=== PATIENT | male | born 1970 | race Caucasian/White ===

== ENCOUNTER 2017-06-08 17:45 | Emergency (ER) | payer OTHER ==
[~2017-06-08] VITALS: Ht 185.4 cm; Wt 106.6 kg
[2017-06-08 17:45] VITALS: BP 113/68
[2017-06-08] MEDS ORDERED: KETOROLAC TROMETHAMINE INJ 60 MG/2 ML VIAL IM ONE ×2 (19:00→19:02)
== END 2017-06-08 19:20 | disposition home or self-care (01) ==
LOC: ER 17:46
DX: M54.5 Low back pain (principal); F17.200 Nicotine dependence, unspecified, uncomplicated
CPT/HCPCS: 96372; 99283; A4606; J1885; J7030; Z7610

== ENCOUNTER 2017-06-30 00:58 | Inpatient (IN) | payer OTHER ==
[~2017-06-30] VITALS: Ht 185.4 cm; Wt 100.2 kg
--- NOTE | 2017-06-30 01:07 | NUR ---
LUQ ABD PAIN X 4 DAYS, DIARRHEA X 3 PAST 4 DAYS, NO N/V PAIN ALLEVIATES WHEN URINATING
[2017-06-30] MEDS ORDERED: MORPHINE SULFATE INJ 4 MG/ML DISP.SYRIN ONE ×2 (01:30→06:41)
[2017-06-30] MEDS ORDERED: ONDANSETRON HCL/PF 4 MG/2 ML VIAL ONE (01:30)
[2017-06-30] MEDS ORDERED: MORPHINE SULFATE INJ 2 MG/ML DISP.SYRIN IV ONE (01:30)
[2017-06-30] MEDS ORDERED: ONDANSETRON HCL/PF 4 MG/2 ML VIAL IVP ONE (01:30)
[2017-06-30] MEDS ORDERED: IV NS 0.9% 1,000 ML BAG IV ONE (01:30)
[2017-06-30 01:35] LABS: BASOPHILS # (AUTO) 0.4 /CMM (0.0-0.2); BASOPHILS % (AUTO) 2.9 % (0.0-2.0); EOSINOPHILS % (AUTO) 0.3 % (0.0-6.0); HEMATOCRIT 38 % (39-51); LYMPHOCYTES # (AUTO) 1.9 /CMM (0.8-4.8); LYMPHOCYTES % (AUTO) 14.7 % (20.0-44.0); MEAN CORPUSCULAR HEMOGLOBIN 29 PG (26.0-33.0); MEAN CORPUSCULAR HGB CONC 34 g/dl (31.0-36.0); MEAN CORPUSCULAR VOLUME 84 fL (80-96); MONOCYTES % (AUTO) 7.8 % (2.0-12.0); NEUTROPHILS # (AUTO) 9.5 /CMM (1.8-8.9); NEUTROPHILS % (AUTO) 74.3 % (43.0-81.0); PLATELET COUNT (AUTO) 487 /CMM (150-450); RDW COEFFICIENT OF VARIATION 14.1 (11.5-15.0); RED BLOOD CELL COUNT(AUTO) 4.54 MIL/uL (4.5-6.0); WHITE BLOOD COUNT (AUTO) 12.8 K/uL (4.3-11.0)
[2017-06-30 01:41] LABS: APPEARANCE,URINE CLEAR (CLEAR); BILIRUBIN,URINE 1+ (NEGATIVE); BLOOD, URINE NEGATIVE Ery/uL (NEGATIVE); KETONES,URINE NEGATIVE (NEGATIVE); LEUKOCYTE ESTERASE ,URINE NEGATIVE (NEGATIVE); NITRITE, URINE NEGATIVE (NEGATIVE); PROTEIN,URINE TRACE mg/dl (NEGATIVE); UGLUCOSE NEGATIVE (NEGATIVE)
[2017-06-30 01:42] LABS: COLOR,URINE DARK YELLOW (YELLOW)
[2017-06-30 01:45] LABS: BACTERIA,URINE Few /HPF (None Seen); RBC,URINE 0-2 /HPF (0-2); SQUAMOUS EPITHELIAL CELL,UR Few /HPF (None Seen); WBC,URINE 0-2 /HPF (0-3)
[2017-06-30 01:51] LABS: CALCIUM, SERUM 9.1 mg/dL (8.5-10.1); CARBON DIOXIDE 25 mmol/L (21-32); CHLORIDE 102 mmol/L (98-107); CREATININE 1.5 mg/dL (0.6-1.3); GLUCOSE 118 mg/dL (74-106); POTASSIUM 3.4 mmol/L (3.5-5.1); SODIUM SERUM 139 mmol/L (136-145); UREA NITROGEN, BLOOD 10 mg/dL (7-18)
[2017-06-30 01:55] LABS: INR 1.16 (0.87-1.13)
[2017-06-30 01:57] LABS: ALANINE AMINOTRANSFERASE 47 U/L (12-78); ALBUMIN 2.7 g/dL (3.4-5.0); ALKALINE PHOSPHATASE 482 U/L (46-116); ASPARTATE AMINOTRANSFERASE 86 U/L (15-37); BILIRUBIN,DIRECT 0.6 mg/dL (0.0-0.2); BILIRUBIN,TOTAL 1.3 mg/dL (0.2-1.0); LIPASE 194 U/L (73-393); TOTAL PROTEIN, SERUM 7.5 g/dL (6.4-8.2)
[2017-06-30 01:59] LABS: TROPONIN I < 0.017 ng/mL (0.00-0.056)
--- NOTE | 2017-06-30 03:44 | NUR ---
GAVE REPORT TO STEFFI RIVAS MEDSURG DX LIVER CA METS DR LARIOS ADMITTING
[2017-06-30 04:00] VITALS: BP 126/65
--- NOTE | 2017-06-30 04:53 | NUR ---
MS2/RN RECEIVE PATIENT FROM [facility]IA [facility] AT 03:52. PATIENT WAS AWAKE, ALERT, ORIENTED, WITH C/O PAIN, NO DISTRESS NOTED, MADE COMFORTABLE IN BED, ADMISSION DONE PER PROTOCOL, TAUGHT THE USE OF CALL LIGHT AND PLACED IT AT BEDSIDE WITHIN REACH. WILL MONITOR.
--- NOTE | 2017-06-30 05:17 | NUR ---
MS2/RN CALLED AND SPOKE TO DR. LARIOS FOR ADMISSION ORDERS.
[2017-06-30] MEDS ORDERED: ZOLPIDEM TARTRATE 5 MG TABLET PO PRN (06:00)
[2017-06-30] MEDS ORDERED: ONDANSETRON HCL/PF 4 MG/2 ML VIAL IVP PRN (06:00)
[2017-06-30] MEDS ORDERED: POTASSIUM CHLORIDE 20 MEQ TAB.PRT.SR PO ONE ×2 (06:00→06:27)
[2017-06-30] MEDS ORDERED: MAG HYDROX/AL HYDROX/SIMETH 30 ML UDC PO PRN (06:00)
[2017-06-30] MEDS ORDERED: ACETAMINOPHEN 325 MG TABLET PO PRN (06:00)
[2017-06-30] MEDS ORDERED: MAGNESIUM HYDROXIDE 30 ML UDC PO PRN (06:00)
[2017-06-30] MEDS ORDERED: MORPHINE SULFATE INJ 2 MG/ML DISP.SYRIN IV PRN (06:00)
[2017-06-30] MEDS ORDERED: HYDROCODONE/APAP 5/325MG 1 EACH TABLET PO PRN (06:00)
[2017-06-30] MEDS ORDERED: Z GUARD REMEDY 2 OZ OINT TP PRN (06:00)
[2017-06-30] MEDS ORDERED: LEVOFLOXACIN 750 MG /D5W 150ML 150 ML IV ONE (06:26)
[2017-06-30] MEDS: LEVOFLOXACIN 750 MG /D5W 150ML 750 MG in PREMIX 1 EA IV SCH (07:00)
--- NOTE | 2017-06-30 07:37 | NUR ---
MS2/RN PATIENT APPEAR SLEEPING POST PAIN MEDICATION. ADMISSION ORDERS PARTIALLY CARRIED OUT AND ENDORSED TO NEXT RN. HOME MED BOTTLE TRAMADOL WAS ENDORSED TO NEXT RN TO SEND TO PHARMACY. ALL NEEDS ATTENDED FOR MY SHIFT.
[2017-06-30] MEDS ORDERED: TRAM50TA2 PO (07:47)
--- NOTE | 2017-06-30 07:59 | NUR ---
MS/RN OPENING NOTE' PATIENT IN BED IN STABLE CONDITION. A/O X 3. NO SIGNS OF ACUTE DISTRESS. NO COMPLAIN OF PAIN OR DISCOMFORT. NPO STATUS AT THIS TIME. ALL NEEDS ATTENDED TO. CALL LIGHT WITHIN REACH. WILL CONTINUE TO MONITOR TO ENSURE SAFETY
[2017-06-30 08:00] VITALS: BP 118/75
[2017-06-30] MEDS: DOCUSATE SODIUM 100 MG CAPSULE PO SCH ×2 (08:51→16:47)
[2017-06-30] MEDS: PANTOPRAZOLE 40 MG TABLET.DR PO SCH (08:51)
[2017-06-30] MEDS: MORPHINE SULFATE INJ 4 MG/ML DISP.SYRIN IV PRN ×3 (10:57→20:25)
--- NOTE | 2017-06-30 14:54 | NUR ---
Social service consult requested by Dr. Barajas for methamphetamine use. Pt. is a 46 year old male who was admitted to [facility] for abdominal pain. Pt. has a diagnosis of liver cancer. JORGE met with pt. bedside. Pt. is alert and oriented x 4. Pt. was cordial with SW during the assessment. Pt. had his eyes closed during the assessment. Pt. states he lives with friends in [place] and will be going back there upon discharge. Pt. is currently on one year probation for substance abuse and has 6 more months to go. Pt. currently receives GR and food stamps. Pt. applied several times for disability but was declined. Pt. is appealing at this time. Pt. requested for SW to contact his crime prevention police officer Shani De Dios at and let her know about his hospitalization. Pt. is a methamphetamine user and last used 4 to 5 days ago. Pt. has been accepted into [facility] if he stays sober for a few days. Pt. is interested in seeing a therapist. JORGE to offer pt. mental health referrals prior to discharge. JORGE called pt's crime prevention police officer Shani De Dios at and informed him of his hospitalization. [facility] requested for JORGE to fax over a face sheet. JORGE got consent from pt. for disclosure of information and faxed face sheet to [employer] [facility]cleod at .
[2017-06-30 16:00] VITALS: BP 112/66
--- NOTE | 2017-06-30 18:34 | NUR ---
MS/RN CLOSING NOTE PATIENT IN BED IN STABLE CONDITION. A/O X 4. NO SIGNS OF ACUTE DISTRESS. NO COMPLAIN OF PAIN OR DISCOMFORT. NPO STATUS AT THIS TIME SECONDARY TO CT NEEDLE BIOPSY SCHEDULE TOMORROW. ALL NEEDS ATTENDED TO. CALL LIGHT WITHIN REACH. WILL ENDORSE TO NEXT SHIFT FOR CONTINUITY OF CARE.
--- NOTE | 2017-06-30 19:30 | NUR ---
RN NOTES RECEIVED PATIENT IN BED AWAKE, AO X 3, ABLE TO MAKE NEEDS KNOWN. NO ACUTE DISTRESS NOTED. MONITORED FOR PAIN. IV SITE PATENT, INTACT; IVF ONGOING ORDERED. SAFETY REMINDERS GIVEN. ON LOW BED WITH BILATERAL UPPER SIDE RAILS UP. CALL SNEED WITHIN EASY REACH. WILL CONTINUE TO MONITOR.
[2017-06-30 20:00] VITALS: BP 123/75
[2017-06-30] MEDS: IV NS 0.9% 1,000 ML IV PRN (20:29)
--- NOTE | 2017-07-01 06:00 | NUR ---
RN NOTES PATIENT ASLEEP, AROUSABLE. RESPIRATIONS EVEN. NO SIGNS OF PAIN NOTED. DUE MEDS GIVEN WITH NO ASE NOTED. NEEDS ATTENDED. SAFETY PRECAUTIONS AND COMFORT MEASURES IN PLACE. WILL GIVE REPORT TO DAY SHIFT FOR CONTINUITY OF CARE.
[2017-07-01] MEDS: LEVOFLOXACIN 750 MG /D5W 150ML 750 MG in PREMIX 1 EA IV SCH (06:01)
[2017-07-01 06:31] LABS: BASOPHILS # (AUTO) 0.1 /CMM (0.0-0.2); BASOPHILS % (AUTO) 0.6 % (0.0-2.0); EOSINOPHILS % (AUTO) 0.2 % (0.0-6.0); HEMATOCRIT 35 % (39-51); HEMOGLOBIN 11.8 g/dL (13.5-17.5); LYMPHOCYTES # (AUTO) 1.4 /CMM (0.8-4.8); LYMPHOCYTES % (AUTO) 12.2 % (20.0-44.0); MEAN CORPUSCULAR HEMOGLOBIN 29 PG (26.0-33.0); MEAN CORPUSCULAR HGB CONC 33 g/dl (31.0-36.0); MEAN CORPUSCULAR VOLUME 87 fL (80-96); MONOCYTES % (AUTO) 8.7 % (2.0-12.0); NEUTROPHILS # (AUTO) 9.3 /CMM (1.8-8.9); NEUTROPHILS % (AUTO) 78.3 % (43.0-81.0); PLATELET COUNT (AUTO) 405 /CMM (150-450); RDW COEFFICIENT OF VARIATION 14.7 (11.5-15.0); RED BLOOD CELL COUNT(AUTO) 4.08 MIL/uL (4.5-6.0); WHITE BLOOD COUNT (AUTO) 11.8 K/uL (4.3-11.0)
[2017-07-01 06:40] LABS: INR 1.16 (0.87-1.13)
[2017-07-01 07:06] LABS: ALBUMIN 2.3 g/dL (3.4-5.0); BILIRUBIN,TOTAL 1.6 mg/dL (0.2-1.0); CALCIUM, SERUM 9.3 mg/dL (8.5-10.1); CREATININE 1.2 mg/dL (0.6-1.3); MAGNESIUM 1.5 mg/dL (1.8-2.4); PHOSPHORUS 3.1 mg/dL (2.5-4.9); POTASSIUM 3.9 mmol/L (3.5-5.1); TOTAL PROTEIN, SERUM 7.1 g/dL (6.4-8.2)
[2017-07-01 07:09] LABS: CREATINE KINASE MB 0.3 ng/mL (0-3.6); THYROID STIMULATING HORMONE 2.3 uIU/mL (0.358-3.74)
[2017-07-01] MEDS: PANTOPRAZOLE 40 MG TABLET.DR PO SCH (07:30)
--- NOTE | 2017-07-01 07:45 | NUR ---
MS RN OPENING NOTE PATIENT IS ALERT AND ORIENTED x4. NO PAIN AT THIS TIME. NO SOB OR DISTRESS NOTED. CALL LIGHT WITHIN REACH. SAFETY MEASURES IMPLEMENTED. ABLE TO COMMUNICATE NEEDS. IV INTACT AND PATENT NO REDNESS OR SWELLING NOTED, IV FLUIDS RUNNING AT THIS TIME AT 100 ML/HR. NPO FOR CT BIOPSY FOR LIVER. WILL CONTINUE TO MONITOR THROUGHOUT SHIFT
[2017-07-01 08:00] VITALS: BP 119/70
[2017-07-01 08:23] LABS: AFP, TUMOR MARKER 2.7 ng/mL (0.0-8.3); CANCER AG, 125 161.5 U/mL (Not Estab.)
[2017-07-01] MEDS: DOCUSATE SODIUM 100 MG CAPSULE PO SCH ×2 (08:58→16:50)
[2017-07-01] MEDS: MORPHINE SULFATE INJ 4 MG/ML DISP.SYRIN IV PRN ×2 (09:02→22:55)
[2017-07-01 10:14] LABS: FERRITIN 830 ng/mL (8-388)
[2017-07-01] MEDS: Magnesium 1GM/D5W 100ML PREMIX 100 ML IV SCH ×2 (11:22→12:26)
[2017-07-01] MEDS: IV NS 0.9% 1,000 ML IV PRN (13:23)
[2017-07-01 14:10] LABS: APPEARANCE,URINE SL CLOUDY (CLEAR); BILIRUBIN,URINE NEGATIVE (NEGATIVE); BLOOD, URINE NEGATIVE Ery/uL (NEGATIVE); COLOR,URINE YELLOW (YELLOW); KETONES,URINE 1+ (NEGATIVE); LEUKOCYTE ESTERASE ,URINE NEGATIVE (NEGATIVE); NITRITE, URINE NEGATIVE (NEGATIVE); PH,URINE 5.5 (5.0-8.0); PROTEIN,URINE NEGATIVE (NEGATIVE); UGLUCOSE NEGATIVE (NEGATIVE)
[2017-07-01 14:47] LABS: BACTERIA,URINE None seen /HPF (None Seen); RBC,URINE 0-2 /HPF (0-2); SQUAMOUS EPITHELIAL CELL,UR Rare /HPF (None Seen); WBC,URINE 0-2 /HPF (0-3)
[2017-07-01 16:00] VITALS: BP 118/70
--- NOTE | 2017-07-01 18:00 | NUR ---
MS RN NOTE PER PATIENT CAN EAT IF THERE NOT DOING PROCEDURE PATIENT CAN EAT
[2017-07-01] MEDS ORDERED: Folic acid 1 MG/0.2 ML VIAL IM ONE (18:30)
--- NOTE | 2017-07-01 18:55 | NUR ---
MS RN CLOSING NOTE PATIENT HAS NO NEW CHANGES. NO PAIN AT THIS TIME. NO SOB OR DISTRESS NOTED. CALL LIGHT WITHIN REACH AT ALL TIMES. SAFETY MEASURES IMPLEMENTED. ABLE TO COMMUNICATE NEEDS. IV INTACT AND PATENT NO REDNESS OR SWELLING NOTED. WILL ENDORSE TO FASHION DESIGNER NURSE FOR SON
--- NOTE | 2017-07-01 19:05 | NUR ---
MS RN NOTES RECEIVED PT IN BED, ASLEEP AT THIS TIME, AROUSES EASILY, A/O X 4. VERBALLY RESPONSIVE. NO DISTRESS, NO SOB NOTED. RESPIRATION IS EVEN AND UNLABORED. IV SITE ON RIGHT WRIST INTACT AND PATENT, IVF INFUSING WELL. ALL NEEDS ATTENDED AND MET. CALL LIGHT WITHIN REACH . WILL CONT TO MONITOR.
[2017-07-01 20:00] VITALS: BP 123/73
[2017-07-02] MEDS: IV NS 0.9% 1,000 ML IV PRN ×2 (02:51→17:34)
[2017-07-02] MEDS: LEVOFLOXACIN 250 MG /D5W 50 ML 250 MG in PREMIX 1 EA IV SCH ×3 (04:14→06:14)
--- NOTE | 2017-07-02 07:01 | NUR ---
MS RN NOTES PT IN BED, ASLEEP AT THIS TIME, AROUSES EASILY, A/O X 4. VERBALLY RESPONSIVE. NO DISTRESS, NO SOB NOTED. RESPIRATION IS EVEN AND UNLABORED. IV SITE ON RIGHT WRIST INTACT AND PATENT, IVF INFUSING WELL. ALL NEEDS ATTENDED AND MET. CALL LIGHT WITHIN REACH . WILL ENDORSE TO NEXT SHIFT FOR SON. .
[2017-07-02] MEDS: MORPHINE SULFATE INJ 4 MG/ML DISP.SYRIN IV PRN ×3 (07:28→22:38)
[2017-07-02 07:56] LABS: CALCIUM, SERUM 9.3 mg/dL (8.5-10.1); CREATININE 1.2 mg/dL (0.6-1.3); MAGNESIUM 1.7 mg/dL (1.8-2.4); POTASSIUM 3.7 mmol/L (3.5-5.1)
[2017-07-02 08:00] VITALS: BP 133/80
--- NOTE | 2017-07-02 08:09 | NUR ---
MS RN NOTES PATIENT IN BED, AWAKE. A/O X4. TOLERATING ROOM AIR, NO SOB. IVC IN RIGHT WRIST G18 PATENT AND INTACT, ON IVF NS INFUSING AT 100ML/HR, TOLERATING WELL. APPEARS COMFORTABLY IN BED, CALL LIGHT WITHIN REACH. WILL CONT TO MONITOR.
[2017-07-02] MEDS: FERROUS SULFATE (325 MG) 325 MG/TAB TABLET PO SCH ×2 (08:41→16:47)
[2017-07-02] MEDS: PANTOPRAZOLE 40 MG TABLET.DR PO SCH (08:41)
[2017-07-02] MEDS: DOCUSATE SODIUM 100 MG CAPSULE PO SCH ×2 (08:41→16:47)
[2017-07-02 11:18] LABS: AFP, TUMOR MARKER 2.5 ng/mL (0.0-8.3)
[2017-07-02] MEDS: Magnesium 1GM/D5W 100ML PREMIX 100 ML IV SCH ×2 (12:26→13:58)
[2017-07-02 16:00] VITALS: BP 134/77
--- NOTE | 2017-07-02 18:22 | NUR ---
PATIENT WITH EPISODE OF VOMITING CLEAR FLUIDS, ZOFRAN 4MG IVP PRN GIVEN. MAINTAIN HOB ELEVATED. WILL RE ASSESS.
--- NOTE | 2017-07-02 19:08 | NUR ---
MS RN CLOSING NOTES PATIENT IN BED, A/O X4. BREATHING EVEN AND NON LABORED. MAGNESIUM IV SUPPLEMENTED TODAY. ZOFRAN IVP PRN EFFECTED, VOMITING STOPPED. NO C/O NAUSEA. CT GUIDED LIVER BIOPSY TO BE DONE ON TUESDAY PER RAD. DR. TEMPLE IS AWARE. CALL LIGHT WITHIN REACH. WILL ENDORSE TO PLATFORM MATERIAL HANDLER MANAGER RN FOR SON.
--- NOTE | 2017-07-02 19:30 | NUR ---
RN NOTE; RECEIVED PT IN BED ALERT, OX4. BREATHING EVENLY. NO SOB. NAD . W/ INTERMITTENT ABD PAIN. DENIED N/V. ON ONGOING IVF HYDRATION. NEED ATTENDED . BED LOW LOCKED. CALL.LIGHT WITHIN REACH. WILL CONT TO MONITOR ,
[2017-07-02 20:00] VITALS: BP 132/82
--- NOTE | 2017-07-02 22:38 | NUR ---
MORPHINE 2MG GIVEN ORDERED PER PT'S C/O SEVERE ABD. PAIN. WILL CONT TO MONITOR,
[2017-07-03] MEDS: LEVOFLOXACIN 250 MG /D5W 50 ML 250 MG in PREMIX 1 EA IV SCH ×3 (03:31→05:39)
[2017-07-03] MEDS: IV NS 0.9% 1,000 ML IV PRN ×2 (03:39→22:10)
[2017-07-03] MEDS: MORPHINE SULFATE INJ 4 MG/ML DISP.SYRIN IV PRN ×3 (03:45→17:02)
--- NOTE | 2017-07-03 03:47 | NUR ---
MORPHINE 2MG GIVEN ORDERED PER PT'S C/O SEVERE ABD. PAIN. WILL CONT TO MONITOR,
--- NOTE | 2017-07-03 07:10 | NUR ---
RN NOTE; PT IN BED SLEEPING. AROUSES EASILY. BREATHING EVENLY. NO SOB, NO ACUTE EVENT DURING THE NIGHT, PAIN MED GIVEN PER PT'S REQUEST. REPORT GIVEN TO DAVID CLINE.
--- NOTE | 2017-07-03 07:30 | NUR ---
MS RN NOTES PATIENT IN BED, SLEEPING, AROUSES EASILY. BREATHING EVEN AND NON LABORED. IVC IN RIGHT WRIST G18 PATENT AND INTACT, ON IVF NS INFUSING AT 100ML/HR. CALL LIGHT WITHIN REACH. WILL CONT TO MONITOR.
[2017-07-03] MEDS: DOCUSATE SODIUM 100 MG CAPSULE PO SCH ×2 (08:19→17:00)
[2017-07-03] MEDS: FERROUS SULFATE (325 MG) 325 MG/TAB TABLET PO SCH ×2 (08:19→17:00)
[2017-07-03] MEDS: PANTOPRAZOLE 40 MG TABLET.DR PO SCH (08:19)
[2017-07-03 08:27] VITALS: BP 127/63
[2017-07-03] MEDS ORDERED: POLYETHYLENE GLYCOL 3350 17 GM POWD.PACK PO PRN (10:00)
[2017-07-03 16:00] VITALS: BP 132/87
--- NOTE | 2017-07-03 18:28 | NUR ---
MS RN CLOSING NOTES PATIENT IN BED, A/O X4. CONT ON IV ATB ORDERED WITH NO ADVERSE SIDE EFFECT. AWAITING FOR CT GUIDED LIVER BIOPSY ON TUESDAY. CALL LIGHT WITHIN REACH. WILL ENDORSE TO STATE DIRECTOR RN FOR SON.
--- NOTE | 2017-07-03 19:30 | NUR ---
RN NOTE; RECEIVED PT IN BED ALERT, OX4. BREATHING EVENLY. NO SOB. NAD . W/ INTERMITTENT ABD PAIN. DENIED N/V. PER PT NO BM FOR PAST FEW DAYS. REFUSED MOM AT THIS TIME. PRUNE JUICE GIVEN. ON ONGOING IVF HYDRATION. NEED ATTENDED . BED LOW LOCKED. CALL.LIGHT WITHIN REACH. WILL CONT TO MONITOR ,
[2017-07-03 20:00] VITALS: BP 130/73
[2017-07-03 20:33] VITALS: BP 130/73
[2017-07-04] MEDS: MORPHINE SULFATE INJ 4 MG/ML DISP.SYRIN IV PRN ×4 (00:02→22:04)
--- NOTE | 2017-07-04 00:04 | NUR ---
MORPHINE 2MHG GIVEN ORDERED PER PT'S REQUEST FOR C/OP SEVERE ABD PAIN. VY JONES TO MONITOR,
[2017-07-04] MEDS: LEVOFLOXACIN 250 MG /D5W 50 ML 250 MG in PREMIX 1 EA IV SCH ×3 (03:21→06:37)
--- NOTE | 2017-07-04 06:46 | NUR ---
RN CLOSING NOTE; PT IN BED SLEEPING, AROUSES EASILY., BREATHING EVENLY. NO SOB. NO ACUTE EVENT OVER NIGHT. NO C/O PAIN OR DISCOMFORT AT THIS TIME. PAIN MEDICATION GIVEN ORDERED PER PT'S REQUEST. EFFECTIVE. NEEDS ATTENDED . CALL LIGHT WITHIN REACH. WILL CONT TO MONITOR AND WILL ENDORSE TO AM SHIFT FOR SON.
[2017-07-04] MEDS: PANTOPRAZOLE 40 MG TABLET.DR PO SCH (07:30)
[2017-07-04 08:00] VITALS: BP 120/79
--- NOTE | 2017-07-04 08:06 | NUR ---
MS RN NOTES PATIENT IN BED, AWAKE. A/O X4. IVC IN RIGHT WRIST G18 PATENT AND INTACT, FLUSHES WELL. AMBULATE TO THE BATHROOM. FOR CT NEEDLE BIOPSY, PER PATIENT HE LAST ATE FOOD DINNER AT 6:30PM YESTERDAY AND NOTHING AFTER THAT, HAD FEW SIPS OF ICE WATER THIS MORNING. CALLED SPOKE TO DR. TEMPLE, PER MD PATIENT STILL WILL HAVE CT NEEDLE BIOPSY TODAY, NURSE MANDOLIN REPAIRER INFORMED. RAD MADE AWARE, WILL CONT TO MONITOR.
[2017-07-04] MEDS: DOCUSATE SODIUM 100 MG CAPSULE PO SCH ×2 (08:19→17:04)
[2017-07-04] MEDS: FERROUS SULFATE (325 MG) 325 MG/TAB TABLET PO SCH ×2 (08:19→17:04)
[2017-07-04] MEDS ORDERED: MIDAZOLAM HCL 2 MG/2ML VIAL IV PRN (14:30)
[2017-07-04] MEDS ORDERED: NALOXONE HCL 0.4 MG/ML AMPUL IV PRN (14:30)
[2017-07-04] MEDS ORDERED: FENTANYL PF 100MCG/2ML AMPUL IV PRN (14:30)
--- NOTE | 2017-07-04 15:37 | NUR ---
PATIENT IS BACK FROM RAD. POST CT GUIDED NEEDLE BIOPSY, VS REMAINS STABLE. IVC IN RIGHT HAND G20 PATENT AND INTACT, PER ICU NURSE PATIENT RECEIVED VERSED 0.5MG IVP AT 1445 AND FENTANYL 0.5MG IVP AT 1455. PATIENT APPEAR COMFORTABLE IN BED, WILL CONT TO MONITOR. RESUME PREVIOUS DIET.
[2017-07-04 16:00] VITALS: BP 126/74
--- NOTE | 2017-07-04 18:59 | NUR ---
MS RN CLOSING NOTES PATIENT IN BED, A/O X4. POST CT NEEDLE BIOPSY TODAY, ABDOMINAL SITE NO BLEEDING NOTED. IVC IN RIGHT HAND G20 PATENT AND INTACT, IVF NS INFUSING AT 100ML/HR. CALL LIGHT WITHIN REACH. WILL ENDORSE TO FORM STRIPPER RN FOR SON.
--- NOTE | 2017-07-04 19:02 | NUR ---
MS RN NOTES PATIENT IN BED, A/O X4. PATIENT TO BE DISCHARGED HOME TODAY, AWAITING FOR TRANSPORTATION. RIGHT FOOT DRESSING INTACT, POST OP SHOE IN PLACE, [place]. DISCHARGE INSTRUCTION GIVEN TO PATIENT AND MATIAS, VERBALIZED UNDERSTANDING. BELONGINGS AND PRESCRIPTION GIVEN TO MATIAS, SISTER. IVC IN RIGHT WRIST REMOVED, GAUZE APPLIED. CALL LIGHT WITHIN REACH. WILL ENDORSE TO DRYING MACHINE RECEIVER RN. Addendum: 07/04/17 at 1940 by DAVID VALIENTE RN DISREGARD ABOVE NOTES. NOT FOR PATIENT LANCE GARZA.
--- NOTE | 2017-07-04 19:30 | NUR ---
RN OPENING NOTE; RECEIVED PT IN BED SLEEPING, AROUSES EASILY. BREATHING EVENLY. NO SOB. NAD. NO S/S OR C/O PAIN OR DISCOMFORT. CALL LIGHT WITHIN REACH. WILL CONT TO MONITOR.
[2017-07-04 20:00] VITALS: BP 124/75
[2017-07-04] MEDS: IV NS 0.9% 1,000 ML IV PRN (20:09)
[2017-07-04 21:17] VITALS: BP 124/75
--- NOTE | 2017-07-04 22:05 | NUR ---
MORPHINE GIVEN ORDERED FOR C/O SEVERE ABD PAIN .WILL CONT TO MONITOR,
[2017-07-05] MEDS ORDERED: LEVOFLOXACIN 750 MG /D5W 150ML 750 MG in PREMIX 1 EA IV SCH (06:00)
--- NOTE | 2017-07-05 07:30 | NUR ---
MS/RN Patient received Patient received from fast food shift supervisor. Sleeping at this time, appears in no distress. Call light placed within reach of patient. Will continue to monitor and ensure safety.
[2017-07-05 08:00] VITALS: BP_SYST 126; BP_SYST 137; BP_DIAS 71; BP_DIAS 81
[2017-07-05] MEDS: PANTOPRAZOLE 40 MG TABLET.DR PO SCH (08:40)
[2017-07-05] MEDS: FERROUS SULFATE (325 MG) 325 MG/TAB TABLET PO SCH ×2 (08:40→17:16)
[2017-07-05] MEDS: DOCUSATE SODIUM 100 MG CAPSULE PO SCH ×2 (08:40→17:16)
[2017-07-05] MEDS: MORPHINE SULFATE INJ 4 MG/ML DISP.SYRIN IV PRN ×2 (08:41→19:36)
--- NOTE | 2017-07-05 08:45 | NUR ---
MS/RN Pain Patient complaining of pain to left side of abdomen 01/27. Morphine 2mg administered as ordered along withrst of morning medication. Will monitor effectiveness.
--- NOTE | 2017-07-05 10:00 | NUR ---
MS/RN Pain reassessment Patient stating that pain is now better controlled, asking to be left alone to sleep.
--- NOTE | 2017-07-05 13:40 | NUR ---
MS/RN S/B Dr Schilling Seen by Dr Schilling - patient to be discharged to home today with order to follow up with Dr Livingston in office to obtain results of CT needle biopsy.
--- NOTE | 2017-07-05 15:43 | NUR ---
JORGE called pt's court collections officer Shani De Dios at and left her a voicemail message informing her that pt. will be discharged home today.
--- NOTE | 2017-07-05 16:37 | NUR ---
MS/skid adzer Discharge paperwork signed by patient, copy made and placed in chart. Copies of medical record also made, no prescription needed. Educated patient as to the importance of following up with Dr Livingston as outpatient to obtain th e results of liver biopsy. Both address and telephone number provided.
--- NOTE | 2017-07-05 19:00 | NUR ---
MS RN NOTES A/O X 4, AWAKE IN BED, PT IN STABLE CONDITION, NO S/S OF DISTRESS. SAFETY MEASURES ARE IN PLACE, CALL LIGHT IS IN REACH. WILL CONTINUE TO MONITOR. FOR DISCHARGE TODAY
--- NOTE | 2017-07-05 19:40 | NUR ---
MS/RN End note Ready for discharge, friend to provide transport at 8p.
--- NOTE | 2017-07-05 20:00 | NUR ---
vs checked bp: 125/86 p 91 r 18 t 97.7 02 sat 96% r.a
--- NOTE | 2017-07-05 20:58 | NUR ---
MS RN NOTES PATIENT LEFT AT 2054 TO HOME, PATIENT ON STABLE CONDITION NO S/S OF DISTRESS NOTED, NO CHEST PAIN, NO HEADACHE, NO NAUSEA AND VOMITING, NO COMPLAINS OF PAIN, VS STABLE, HEALTH EDUCATION AND EXIT CARE WAS PROVIDED, EDUCATION ABOUT DISEASE AND RISKS AND BENEFITS FOLLOW UP CARE PROVIDED, REFUSES FLU VACCINE DESPITE EXPLAINING RISK AND BENEFITS VERBALIZED UNDERSTANDING. DOCUMENTS WAS PROVIDED. ALL BELONGINGS WAS SENT TO THE PT. IV SITE WAS REMOVED APPLIED CLEAN DRESSING FOR PRESSURE AND KEPT CLEAN AND DRY. TOLERATED PROCEDURE WELL. PT APPRECIATIVE AND THANKFUL. PATIENT LEFT WITH THEIR OWN TRANSPORTATION.
== END 2017-07-05 20:55 | disposition home or self-care (01) | DRG 281 ==
LOC: ER 01:00 → MEDSG2 03:31
PROVIDERS: ADMIT Internal Medicine; ATTEND Internal Medicine
PROC: 0FB13ZX Excision of Right Lobe Liver, Percutaneous Approach, Diagnostic (ICD-10-PCS; principal; 2017-07-04)
DX: C78.7 Secondary malignant neoplasm of liver and intrahepatic bile duct (principal); N17.0 Acute kidney failure with tubular necrosis; D63.8 Anemia in other chronic diseases classified elsewhere; D72.829 Elevated white blood cell count, unspecified; Z90.01 Acquired absence of eye; Z85.840 Personal history of malignant neoplasm of eye; D47.3 Essential (hemorrhagic) thrombocythemia; D50.9 Iron deficiency anemia, unspecified; C79.72 Secondary malignant neoplasm of left adrenal gland; C79.71 Secondary malignant neoplasm of right adrenal gland
CPT/HCPCS: 36415; 71045-TC; 76942-TC; 77012-TC; 80048-TC; 80053-TC; 80061-TC; 80076-TC; 81000-TC; 82105; 82553-TC; 82728-TC; 82746; 83540-TC; 83615-TC; 83690-TC; 83735-TC; 84100-TC; 84443-TC; 84484-TC; 85025-TC; 85730-TC; 86301; 86304; 87040-TC; 87081-TC; 87086-TC; 88305-TC; 88307-TC; 88313-TC; 88342; 93307-TC; A4216; A4606; J1956; J2250; J2270; J2310; J2405; J3010; J3475; J3490; J7030; Z7610

== ENCOUNTER 2017-07-10 19:36 | Inpatient (IN) | payer OTHER ==
[~2017-07-10] VITALS: Ht 185.4 cm; Wt 102.1 kg
[~2017-07-10 19:36] MED LIST: TRAM50TA2 PO
--- NOTE | 2017-07-10 19:40 | NUR ---
TO BED 3 A 46 YO MALE PATIENT BB SELF C/O ABD PAIN WITH SOB X 3 WEEKS. PATIENT IS AAOX4, BREATHING EVEN AND UNLABORED. NONDIAPHORETIC. PLACED PATIENT ON MONITOR. GOWNED. AND COMFORT MEASURES RENDERED. KEPT HOB ELEVATED.
[2017-07-10] MEDS ORDERED: ONDANSETRON HCL/PF 4 MG/2 ML VIAL IVP ONE (20:00)
[2017-07-10] MEDS ORDERED: IV NS 0.9% 500 ML BAG IV ONE (20:00)
[2017-07-10] MEDS ORDERED: MORPHINE SULFATE INJ 2 MG/ML DISP.SYRIN IV ONE (20:00)
--- NOTE | 2017-07-10 20:20 | NUR ---
started a saline lock on the lac g18, blood drawn and sent to lab.
[2017-07-10] MEDS ORDERED: ONDANSETRON HCL/PF 4 MG/2 ML VIAL ONE (20:24)
[2017-07-10] MEDS ORDERED: MORPHINE SULFATE INJ 4 MG/ML DISP.SYRIN ONE ×2 (20:25)
[2017-07-10 20:31] LABS: BASOPHILS % (AUTO) 0.2 % (0.0-2.0); EOSINOPHILS # (AUTO) 0.1 /CMM (0.0-0.7); EOSINOPHILS % (AUTO) 0.5 % (0.0-6.0); HEMATOCRIT 36 % (39-51); HEMOGLOBIN 12.2 g/dL (13.5-17.5); LYMPHOCYTES # (AUTO) 1.3 /CMM (0.8-4.8); LYMPHOCYTES % (AUTO) 8.6 % (20.0-44.0); MEAN CORPUSCULAR HEMOGLOBIN 29 PG (26.0-33.0); MEAN CORPUSCULAR HGB CONC 34 g/dl (31.0-36.0); MEAN CORPUSCULAR VOLUME 84 fL (80-96); MONOCYTES # (AUTO) 1.2 /CMM (0.1-1.30); NEUTROPHILS # (AUTO) 12.1 /CMM (1.8-8.9); NEUTROPHILS % (AUTO) 82.7 % (43.0-81.0); PLATELET COUNT (AUTO) 465 /CMM (150-450); RDW COEFFICIENT OF VARIATION 15.8 (11.5-15.0); RED BLOOD CELL COUNT(AUTO) 4.27 MIL/uL (4.5-6.0); WHITE BLOOD COUNT (AUTO) 14.6 K/uL (4.3-11.0)
--- NOTE | 2017-07-10 20:33 | NUR ---
medicated patient as ordered by Dr Vasquez.
[2017-07-10 20:51] LABS: TROPONIN I < 0.017 ng/mL (0.00-0.056)
--- NOTE | 2017-07-10 21:02 | NUR ---
TELE BED 325.1
[2017-07-10 21:06] LABS: INR 1.22 (0.87-1.13)
[2017-07-10 21:19] LABS: CALCIUM, SERUM 9.1 mg/dL (8.5-10.1); CARBON DIOXIDE 20 mmol/L (21-32); CHLORIDE 96 mmol/L (98-107); CREATININE 5.1 mg/dL (0.6-1.3); GLUCOSE 121 mg/dL (74-106); POTASSIUM 3.6 mmol/L (3.5-5.1); SODIUM SERUM 133 mmol/L (136-145); UREA NITROGEN, BLOOD 32 mg/dL (7-18)
[2017-07-10 21:27] LABS: D-DIMER 10.3 mg/L(FEU (0.17-0.50)
[2017-07-10] MEDS ORDERED: IV NS 0.9% 1,000 ML BAG IV ONE (21:30)
[2017-07-10 21:32] LABS: ALANINE AMINOTRANSFERASE 41 U/L (12-78); ALBUMIN 2.2 g/dL (3.4-5.0); ALKALINE PHOSPHATASE 738 U/L (46-116); ASPARTATE AMINOTRANSFERASE 124 U/L (15-37); B-TYPE NATRIURETIC PEPTIDE 908 PG/ML (0-125); BILIRUBIN,DIRECT 2.5 mg/dL (0.0-0.2); BILIRUBIN,TOTAL 3.3 mg/dL (0.2-1.0); TOTAL PROTEIN, SERUM 6.9 g/dL (6.4-8.2)
--- NOTE | 2017-07-10 23:06 | NUR ---
CALLED RADIOLOGY FOR ETA ON VQ SCAN. ECOMMERCE MERCHANDISING MANAGER STATED HE WOULD CALL AND SEE IF HE COULD FIND OUT WHEN THE [facility] WILL ARRIVE.
--- NOTE | 2017-07-10 23:09 | NUR ---
RECEIVED CALL FROM ALEXI IN RADIOLOGY. NUCLEAR MED TECH STATED VQ SCAN WILL BE DONE AT APPROX 00:00.
[2017-07-11] VITALS (7 sets, daily range): BP systolic 123–147; BP diastolic 58–79
[2017-07-11 00:28] LABS: APPEARANCE,URINE SL CLOUDY (CLEAR); BILIRUBIN,URINE 2+ (NEGATIVE); BLOOD, URINE NEGATIVE Ery/uL (NEGATIVE); COLOR,URINE DARK YELLO (YELLOW); KETONES,URINE NEGATIVE (NEGATIVE); LEUKOCYTE ESTERASE ,URINE NEGATIVE (NEGATIVE); NITRITE, URINE NEGATIVE (NEGATIVE); PH,URINE 5.5 (5.0-8.0); PROTEIN,URINE 2+ mg/dl (NEGATIVE); UGLUCOSE NEGATIVE (NEGATIVE)
[2017-07-11 00:36] LABS: BACTERIA,URINE None seen /HPF (None Seen); RBC,URINE NONE SEEN /HPF (0-2); SQUAMOUS EPITHELIAL CELL,UR Moderate /HPF (None Seen); URINE AMORPHOUS URATE Few /HPF (None Seen); WBC,URINE 0-2 /HPF (0-3)
--- NOTE | 2017-07-11 01:07 | NUR ---
patient to nm scan.
--- NOTE | 2017-07-11 01:41 | NUR ---
NM:LUNG V/Q WAS COMPLETED. TECH:RB.
--- NOTE | 2017-07-11 02:19 | NUR ---
Report given to Rvi RN for admssion and dyana.
--- NOTE | 2017-07-11 02:35 | NUR ---
RN NOTES RECEIVED PATIENT FROM ER FOR DX ABDOMINAL PAIN. PATIENT AO X 3, ABLE TO MAKE NEEDS KNOWN. NO ACUTE DISTRESS NOTED. MONITORED FOR PAIN. SINUS RHYTHM HR 94. IV SITE PATENT, INTACT; FLUSHED. SKIN INTACT. ORIENTED TO ROOM. SAFETY REMINDERS GIVEN. ON LOW BED WITH BILATERAL UPPER SIDE RAILS UP. CALL SNEED WITHIN EASY REACH. WILL CONTINUE TO MONITOR.
--- NOTE | 2017-07-11 02:36 | NUR ---
Transferred patient to tele bed 325-1 via als protocol, no incident noted.
[2017-07-11] MEDS ORDERED: METRONIDAZOLE 500MG/ NS 100ML 500 MG in PREMIX 1 EA IV SCH (04:00)
[2017-07-11] MEDS ORDERED: ZOLPIDEM TARTRATE 5 MG TABLET PO PRN (04:00)
[2017-07-11] MEDS ORDERED: ACETAMINOPHEN 325 MG TABLET PO PRN (04:00)
[2017-07-11] MEDS ORDERED: MORPHINE SULFATE INJ 4 MG/ML DISP.SYRIN ONE (04:00)
[2017-07-11] MEDS ORDERED: MAGNESIUM HYDROXIDE 30 ML UDC PO PRN (04:00)
[2017-07-11] MEDS ORDERED: LEVOFLOXACIN 750 MG /D5W 150ML 750 MG in PREMIX 1 EA IV SCH ×2 (04:00→07:41)
[2017-07-11] MEDS ORDERED: ENOXAPARIN SODIUM 40 MG/0.4 ML DISP.SYRIN SQ SCH (04:00)
[2017-07-11] MEDS ORDERED: ONDANSETRON HCL/PF 4 MG/2 ML VIAL ONE (04:01)
[2017-07-11] MEDS ORDERED: ENOXAPARIN SODIUM 40 MG/0.4 ML DISP.SYRIN SQ ONE (04:01)
[2017-07-11] MEDS ORDERED: LEVOFLOXACIN 750 MG /D5W 150ML 150 ML IV ONE (04:02)
[2017-07-11] MEDS ORDERED: METRONIDAZOLE 500MG/ NS 100ML 100 ML IV ONE (04:05)
[2017-07-11] MEDS: IV NS 0.9% 1,000 ML IV PRN ×2 (04:13→15:53)
--- NOTE | 2017-07-11 06:25 | NUR ---
RN NOTES PATIENT ASLEEP, EASILY AROUSABLE. RESPIRATIONS EVEN. DUE MEDS GIVEN WITH NO ASE NOTED. NEEDS ATTENDED. SAFETY PRECAUTIONS AND COMFORT MEASURES IN PLACE. WILL GIVE REPORT TO DAY SHIFT FOR CONTINUITY OF CARE.
[2017-07-11] MEDS: ONDANSETRON HCL/PF 4 MG/2 ML VIAL IVP PRN (06:29)
[2017-07-11] MEDS: MORPHINE SULFATE INJ 4 MG/ML DISP.SYRIN IV PRN ×3 (06:29→19:25)
--- NOTE | 2017-07-11 07:00 | NUR ---
MS RN OPENING NOTES RECEIVED PATIENT IN BED AWAKE, ALERT ORIENTED X4. NO SOB NOTED. NO ACUTE DISTRESS NOTED. BREATHING UNLABORED. IV ACCESS PATENT AND INTACT.SAFETY MEASURES IN PLACE. CALL LIGHT WITHIN REACH. WILL CONTINUE TO MONITOR ACCORDINGLY.
[2017-07-11] MEDS: METRONIDAZOLE 500MG/ NS 100ML 500 MG in PREMIX 1 EA IV SCH ×2 (12:20→20:45)
--- NOTE | 2017-07-11 14:38 | NUR ---
RN NOTES SEEN AND EVALUATED BY DR TEMPLE WITH NEW ORDERS MADE. NOTED AND CARRIED OUT.
[2017-07-11] MEDS: FOLIC ACID 1 MG TABLET PO SCH (15:00)
[2017-07-11 15:21] LABS: CALCIUM, SERUM 8.4 mg/dL (8.5-10.1)
[2017-07-11] MEDS: FERROUS SULFATE (325 MG) 325 MG/TAB TABLET PO SCH (17:00)
--- NOTE | 2017-07-11 18:00 | NUR ---
MS RN CLOSING NOTES PATIENT IN BED AWAKE, ALERT ORIENTED X4. NO ACUTE DISTRESS NOTED. BREATHING UNLABORED. NO SOB NOTED. IV ACCESS PATENT AND INTACT INFUSING NS AT 125ML/HR. SAFETY MEASURES IN PLACE.NEEDS ATTENDED AND ANTICIPATED. DUE MEDICATIONS GIVEN, NO ASE NOTED. PATIENT PLACED ON NPO ORDERED. CALL LIGHT WITHIN REACH. WILL CONTINUE TO MONITOR ACCORDINGLY.WILL ENDORSE TO VBA PROGRAMMER FOR CONTINUITY OF CARE.
--- NOTE | 2017-07-11 19:25 | NUR ---
MS RN OPENING NOTES RECEIVED PATIENT IN BED RESTING, ALERT ORIENTED X4. NO SOB NOTED. NO ACUTE DISTRESS NOTED. BREATHING UNLABORED. HAD C/O ABDOMINAL PAIN 01/27. PRN MORPHINE GIVEN ORDERED. WILL REASSESS FOR EFFECTIVENESS. V/S WNL. IV ACCESS TO LAC,PATENT AND INTACT, RUNNING WITH NS @ 125 ML/HR. NPO @ THIS TIME. CONTINENT OF B & BM. BED IN OW LOCKED POSITION. SAFETY MEASURES IN PLACE. CALL LIGHT WITHIN REACH. WILL CONTINUE TO MONITOR ACCORDINGLY.
--- NOTE | 2017-07-11 19:58 | NUR ---
CRUMB PACKER NEW ADMISSION NOTES RECEIVED PATIENT FROM ER VIA GURNEY ACCOMPANIED BY STAFF, A & O X 2-3 WITH REPETITIVE QUESTIONS/FORGETFULNESS. RESP EVEN & NON LABORED, @ RA, SATTING WNL. NO ACUTE DISTRESS NOTED. MILD C/O PAIN TO RIGHT HAND NOTED. IV ACCESS TO LAC, SL, INTACT PATENT. V/S WNL. BODY CHECK DONE PHOTOS TAKEN. FAMILY @ BED SIDE. ALL BELONGINGS ACCOUNTED FOR & DOCUMENTED BY PLANE CAPTAIN. ALL NEEDS ATTENDED & MET. ASSISTED WITH ADL CARE. ON REGULAR DIET. CONTINENT OF B & BM. NEHEMIAH STYLES AWARE ABOUT THE ADMISSION WITH NEW ORDERS. NOTED & CARRIED OUT. BED IN LOW LOCKED POSITION. CALL LIGHT WITHIN REACH. WILL CONTINUE TO OBSERVE. Addendum: 07/12/17 at 0234 by ABNER FRIEDMAN RN WRONG ENTRY OF NOTES FOR WRONG PATIENT ON 07/11/17 @ 8.
[2017-07-11] MEDS: HEPARIN SODIUM, PORCINE 5000 UNITS/1 ML VIAL SQ SCH (20:58)
[2017-07-12] MEDS: IV NS 0.9% 1,000 ML IV PRN ×2 (02:02→11:19)
[2017-07-12] MEDS: METRONIDAZOLE 500MG/ NS 100ML 500 MG in PREMIX 1 EA IV SCH ×3 (05:27→21:17)
[2017-07-12] MEDS: MORPHINE SULFATE INJ 4 MG/ML DISP.SYRIN IV PRN ×3 (05:32→22:26)
--- NOTE | 2017-07-12 05:32 | NUR ---
PRN MORPHINE GIVEN PATIENT PHAN C/O ABDOMINAL PAIN 01/27, PRN MORPHINE GIVEN. WILL REASSESS FOR EFFECTIVENESS.
[2017-07-12 06:23] LABS: BASOPHILS # (AUTO) 0.1 /CMM (0.0-0.2); BASOPHILS % (AUTO) 0.5 % (0.0-2.0); EOSINOPHILS % (AUTO) 0.4 % (0.0-6.0); HEMATOCRIT 35 % (39-51); HEMOGLOBIN 11.7 g/dL (13.5-17.5); LYMPHOCYTES # (AUTO) 1.2 /CMM (0.8-4.8); LYMPHOCYTES % (AUTO) 9.5 % (20.0-44.0); MEAN CORPUSCULAR HEMOGLOBIN 29 PG (26.0-33.0); MEAN CORPUSCULAR HGB CONC 34 g/dl (31.0-36.0); MEAN CORPUSCULAR VOLUME 85 fL (80-96); MONOCYTES # (AUTO) 1.2 /CMM (0.1-1.30); MONOCYTES % (AUTO) 9.3 % (2.0-12.0); NEUTROPHILS # (AUTO) 10.1 /CMM (1.8-8.9); NEUTROPHILS % (AUTO) 80.3 % (43.0-81.0); PLATELET COUNT (AUTO) 491 /CMM (150-450); RDW COEFFICIENT OF VARIATION 15.6 (11.5-15.0); RED BLOOD CELL COUNT(AUTO) 4.07 MIL/uL (4.5-6.0); WHITE BLOOD COUNT (AUTO) 12.6 K/uL (4.3-11.0)
--- NOTE | 2017-07-12 06:29 | NUR ---
MS RN CLOSING NOTES PATIENT SLEPT IN BED WELL @ NIGHT, ALERT ORIENTED X4. NO SOB NOTED. NO ACUTE DISTRESS NOTED. BREATHING UNLABORED. HAD C/O ABDOMINAL PAIN 01/27. PRN MORPHINE GIVEN ORDERED & WAS EFFECTIVE. V/S WNL. IV ACCESS TO LAC,PATENT AND INTACT, RUNNING WITH NS @ 125 ML/HR. NPO @ THIS TIME. CONTINENT OF B & BM. BED IN OW LOCKED POSITION. SAFETY MEASURES IN PLACE. CALL LIGHT WITHIN REACH. WILL ENDORSE TO AM RN FOR CONTINUITY OF CARE.
[2017-07-12 06:48] LABS: ALBUMIN 1.9 g/dL (3.4-5.0); BILIRUBIN,TOTAL 3.3 mg/dL (0.2-1.0); CALCIUM, SERUM 8.9 mg/dL (8.5-10.1); CREATININE 5.4 mg/dL (0.6-1.3); MAGNESIUM 1.9 mg/dL (1.8-2.4); POTASSIUM 3.9 mmol/L (3.5-5.1); TOTAL PROTEIN, SERUM 6.7 g/dL (6.4-8.2)
[2017-07-12 08:00] VITALS: BP 114/65
--- NOTE | 2017-07-12 08:00 | NUR ---
MED SURG 3 AM RN NOTES RECEIVED PATIENT AWAKE IN BED. ALERT AND ORIENTED X4. BREATHING COMFORTABLY ON ROOM AIR WITH NO SHORTNESS OF BREATH NOTED. PATIENT NPO WITH 18G IV AT LEFT AC WITH 0.9NS INFUSING WELL AT 125ML/HR. PATIENT HAS NO COMPLAINTS OF PAIN OR SIGNS OF DISTRESS. BED IN LOW POSITION WITH TWO SIDE RAILS UP, CALL LIGHT WITHIN REACH.
[2017-07-12] MEDS: FOLIC ACID 1 MG TABLET PO SCH (08:47)
[2017-07-12] MEDS: FERROUS SULFATE (325 MG) 325 MG/TAB TABLET PO SCH ×2 (08:47→17:09)
[2017-07-12] MEDS: HEPARIN SODIUM, PORCINE 5000 UNITS/1 ML VIAL SQ SCH ×2 (09:19→21:23)
[2017-07-12] MEDS ORDERED: ALBUMIN 25% 12.5 GM/50 ML BOTTLE IV ONE ×2 (13:00→13:30)
[2017-07-12] MEDS ORDERED: FUROSEMIDE 20 MG/2 ML VIAL IV ONE (13:00)
[2017-07-12] MEDS ORDERED: ALBUMIN 25% 25 GM in PREMIX 1 EA IV ONE ×2 (13:30→14:00)
[2017-07-12 15:32] LABS: BILIRUBIN,URINE 2+ (NEGATIVE); BLOOD, URINE NEGATIVE Ery/uL (NEGATIVE); COLOR,URINE DARK YELLO (YELLOW); KETONES,URINE TRACE (NEGATIVE); LEUKOCYTE ESTERASE ,URINE TRACE (NEGATIVE); NITRITE, URINE NEGATIVE (NEGATIVE); PROTEIN,URINE 1+ mg/dl (NEGATIVE); UGLUCOSE NEGATIVE (NEGATIVE)
[2017-07-12 15:39] LABS: CREATININE, URINE 188.5 MG/DL (30.0-125.0); URINE TOTAL PROTEIN 84.4 mg/dL (0-11.9)
[2017-07-12 15:40] LABS: APPEARANCE,URINE SLIGHTLY HAZY (CLEAR)
[2017-07-12 15:44] LABS: BACTERIA,URINE None seen /HPF (None Seen); RBC,URINE 0-2 /HPF (0-2); SQUAMOUS EPITHELIAL CELL,UR Rare /HPF (None Seen)
[2017-07-12 16:00] VITALS: BP 106/53
--- NOTE | 2017-07-12 16:00 | NUR ---
CONTACTED LAI DOYLE, CONCRETE BOOM PUMP OPERATOR TO ASK IF PATIENT CAN CONSUME ICE CHIPS. PATIENT BECOMING INCREASINGLY AGITATED DUE TO THE FACT THAT HE HASN'T HAD ANYTHING TO EAT OR DRINK SINCE LUNCH YESTERDAY AND HAS BEEN NPO. YANIRA GAVE NEW ORDER TO DISCONTINUE NPO AND START PATIENT ON RENAL DIET. ORDERS CARRIED OUT.
[2017-07-12 17:51] LABS: EOSINOPHIL,URINE None Seen
--- NOTE | 2017-07-12 18:37 | NUR ---
MED SURG 3 RN CLOSING NOTE PATIENT RESTING IN BED. VITALS STABLE, NO SIGNS OR SYMPTOMS OF DISTRESS. ON ROOM AIR, BREATHING COMFORTABLY. NPO DISCONTINUED, PATIENT STARTED ON RENAL DIET AT DINNER. 18G IV AT LEFT AC WITH 0.9NS INFUSING WELL AT 125ML/HR. BED IN LOW POSITION WITH TWO SIDE RAILS UP, CALL LIGHT WITHIN REACH
--- NOTE | 2017-07-12 19:31 | NUR ---
MS RN OPENING NOTES RECEIVED PATIENT RESTING IN BED, ALERT ORIENTED X 4. NO SOB NOTED. NO ACUTE DISTRESS NOTED. BREATHING UNLABORED. NO C/O PAIN VERBALIZED @ THIS TIME. FEELING BETTER WHILE SUCKING ICE CHIPS, PER PT. IV ACCESS TO LAC,PATENT AND INTACT, RUNNING WITH NS @ 125 ML/HR. ON RENAL DIET, TOLERATED DINNER WELL PER PT. CONTINENT OF B & BM. BED IN LOW LOCKED POSITION. SAFETY MEASURES IN PLACE. CALL LIGHT WITHIN REACH. WILL CONTINUE TO MONITOR ACCORDINGLY.
[2017-07-12 20:00] VITALS: BP 116/69
--- NOTE | 2017-07-12 22:26 | NUR ---
PRN MORPHINE GIVEN PATIENT HAD C/O ABD PAIN 8/10, PRN MORPHINE GIVEN ORDERED. WILL MONITOR FOR EFFECTIVENESS.
--- NOTE | 2017-07-13 00:15 | NUR ---
MS RN NOTES PATIENT IS SLEEPING COMFORTABLY IN BED WITHOUT ANY COMPLICATIONS. FREQUENT VISUAL CHECKS DONE FOR SAFETY & COMFORT.
[2017-07-13] MEDS: IV NS 0.9% 1,000 ML IV PRN ×2 (01:08→11:43)
[2017-07-13] MEDS: METRONIDAZOLE 500MG/ NS 100ML 500 MG in PREMIX 1 EA IV SCH ×3 (04:56→21:41)
[2017-07-13] MEDS ORDERED: LEVOFLOXACIN 750 MG /D5W 150ML 750 MG in PREMIX 1 EA IV SCH (06:00)
--- NOTE | 2017-07-13 06:21 | NUR ---
MS RN CLOSING NOTES PATIENT SLEPT IN BED WELL @ NIGHT, ALERT ORIENTED X 4. NO SOB NOTED. NO ACUTE DISTRESS NOTED. BREATHING UNLABORED. HAD C/O ABDOMINAL PAIN 01/27. PRN MORPHINE GIVEN ORDERED & WAS EFFECTIVE. V/S WNL. IV ACCESS TO LAC,PATENT AND INTACT, RUNNING WITH NS @ 125 ML/HR. ON RENAL DIET @ THIS TIME. CONTINENT OF B & BM. BED IN LOW LOCKED POSITION. SAFETY MEASURES IN PLACE. CALL LIGHT WITHIN REACH. WILL ENDORSE TO AM RN FOR CONTINUITY OF CARE.
[2017-07-13] MEDS: ONDANSETRON HCL/PF 4 MG/2 ML VIAL IVP PRN ×3 (07:04→21:47)
--- NOTE | 2017-07-13 07:04 | NUR ---
PRN ZOFRAN GIVEN PATIENT VOMITED X 1 WITH NAUSEA. PRN ZOFRAN GIVEN ORDERED. WILL ENDORSED TO AM RN TO REASSESS THE PATIENT.
[2017-07-13 07:41] LABS: ALBUMIN 2.4 g/dL (3.4-5.0); BILIRUBIN,TOTAL 3.2 mg/dL (0.2-1.0); CALCIUM, SERUM 8.9 mg/dL (8.5-10.1); CREATININE 5.7 mg/dL (0.6-1.3); MAGNESIUM 1.9 mg/dL (1.8-2.4); PHOSPHORUS 5.4 mg/dL (2.5-4.9); TOTAL PROTEIN, SERUM 6.8 g/dL (6.4-8.2)
[2017-07-13 07:49] LABS: BASOPHILS % (AUTO) 0.2 % (0.0-2.0); EOSINOPHILS # (AUTO) 0.1 /CMM (0.0-0.7); EOSINOPHILS % (AUTO) 0.5 % (0.0-6.0); HEMATOCRIT 32 % (39-51); HEMOGLOBIN 10.8 g/dL (13.5-17.5); LYMPHOCYTES # (AUTO) 1.3 /CMM (0.8-4.8); LYMPHOCYTES % (AUTO) 11.5 % (20.0-44.0); MEAN CORPUSCULAR HEMOGLOBIN 29 PG (26.0-33.0); MEAN CORPUSCULAR HGB CONC 34 g/dl (31.0-36.0); MEAN CORPUSCULAR VOLUME 84 fL (80-96); MONOCYTES % (AUTO) 8.7 % (2.0-12.0); NEUTROPHILS % (AUTO) 79.1 % (43.0-81.0); PLATELET COUNT (AUTO) 500 /CMM (150-450); RED BLOOD CELL COUNT(AUTO) 3.76 MIL/uL (4.5-6.0); WHITE BLOOD COUNT (AUTO) 11.4 K/uL (4.3-11.0)
[2017-07-13 08:00] VITALS: BP 117/65
--- NOTE | 2017-07-13 08:00 | NUR ---
MED SURG 3 RN AM NOTES RECEIVED PATIENT AWAKE IN BED. VITAL SIGNS STABLE, ON ROOM AIR BREATHING COMFORTABLY. PATIENT DENIES ANY PAIN, NO SIGNS OR SYMPTOMS OF DISTRESS. ALERT AND ORIENTED X4. 18G IV AT LEFT AC WITH 0.9NS INFUSING WELL AT 125ML/HR, NO S/S OF COMPLICATIONS. BED IN LOW POSITION WITH TWO SIDE RAILS UP, CALL LIGHT WITHIN REACH.
[2017-07-13] MEDS: HEPARIN SODIUM, PORCINE 5000 UNITS/1 ML VIAL SQ SCH ×2 (08:34→21:47)
[2017-07-13] MEDS: FOLIC ACID 1 MG TABLET PO SCH (08:34)
[2017-07-13] MEDS: MORPHINE SULFATE INJ 4 MG/ML DISP.SYRIN IV PRN ×2 (08:34→21:57)
[2017-07-13] MEDS: FERROUS SULFATE (325 MG) 325 MG/TAB TABLET PO SCH ×2 (08:34→16:38)
--- NOTE | 2017-07-13 10:37 | NUR ---
JORGE called pt's probation and parole officer Shani De Dios at and left her a voicemail message informing her that pt. has been re-admitted to [facility] as of 07/11/2017.
--- NOTE | 2017-07-13 10:45 | NUR ---
JORGE received a call back from pt's business development officer Shani De Dios . Officer Lanre requested for JORGE to fax over a face sheet. JORGE faxed face sheet to Officer Shani at .
[2017-07-13 12:11] LABS: PTH, INTACT 11 pg/mL (15-65)
[2017-07-13] MEDS ORDERED: MINERAL OIL 133 ML (PYXIS) 1 EA ENEMA RC ONE ×2 (13:30→16:30)
[2017-07-13 16:00] VITALS: BP 129/76
--- NOTE | 2017-07-13 16:58 | NUR ---
DELAYED ADMINISTRATION PER PT'S REQUEST Addendum: 07/13/17 at 1658 by KASHIF ROMERO RN DELAYED ADMINISTRATION OF FLEET ENEMA DUE TO PT'S REQUEST
--- NOTE | 2017-07-13 18:27 | NUR ---
MED SURG 3 RN CLOSING NOTE PATIENT IN BED RESTING. PATIENT ALERT AND ORIENTED X4. PER PATIENT'S RECOLLECTION HIS LAST BOWEL MOVEMENT WAS 5 DAYS AGO, NEW ORDERS RECEIVED FOR FLEET ENEMA. FLEET ENEMA GIVEN AT 1656, PATIENT VERBALIZED FEELING "LESS NAUSEOUS AND MORE COMFORTABLE". PATIENT DENIES ANY PAIN OR DISTRESS. VITAL SIGNS STABLE, RESPIRATIONS UNLABORED ON ROOM AIR. IV LEFT AC 18G INFUSING 0.9NS AT 125ML/HR, WITHOUT COMPLICATIONS. BED IN LOW POSITION WITH SIDE RAILS UP X 2 AND CALL LIGHT WITHIN REACH.
--- NOTE | 2017-07-13 19:30 | NUR ---
RN NOTES RECEIVED PATIENT IN BED AWAKE, AO X 3, ABLE TO MAKE NEEDS KNOWN. NO ACUTE DISTRESS NOTED. MONITORED FOR PAIN. IV SITE PATENT, INTACT; IVF INFUSING ORDERED. SAFETY REMINDERS GIVEN. ON LOW BED WITH BILATERAL UPPER SIDE RAILS UP. CALL SNEED WITHIN EASY REACH. WILL CONTINUE TO MONITOR.
[2017-07-13 20:00] VITALS: BP_SYST 104; BP_SYST 114; BP_DIAS 64
[2017-07-14 05:14] LABS: *SPE A/G RATIO 0.6 (0.7-1.7); *SPE ALBUMIN 2.2 g/dL (2.9-4.4); *SPE ALPHA-1-GLOBULIN 0.5 g/dL (0.0-0.4); *SPE ALPHA-2-GLOBULIN 1.1 g/dL (0.4-1.0); *SPE BETA GLOBULIN 0.8 g/dL (0.7-1.3); *SPE GLOBULIN, TOTAL 3.7 g/dL (2.2-3.9); *SPE M-SPIKE Not Observed g/dL (Not Observed); *SPEGAMMA GLOBULIN 1.3 g/dL (0.4-1.8)
[2017-07-14] MEDS: METRONIDAZOLE 500MG/ NS 100ML 500 MG in PREMIX 1 EA IV SCH (05:38)
[2017-07-14] MEDS: IV NS 0.9% 1,000 ML IV PRN ×2 (05:40→10:59)
--- NOTE | 2017-07-14 06:00 | NUR ---
RN NOTES PATIENT ASLEEP, EASILY AROUSABLE. RESPIRATIONS EVEN. NO SIGNS OF PAIN NOTED. DUE MEDS GIVEN WITH NO ASE NOTED. NEEDS ATTENDED. SAFETY PRECAUTIONS AND COMFORT MEASURES IN PLACE. WILL GIVE REPORT TO DAY SHIFT FOR CONTINUITY OF CARE.
--- NOTE | 2017-07-14 07:30 | NUR ---
MSRN OPENING NOTE PT RECEIVED A&0X3 RESTING IN BED. PT TOLERATING ROOM AIR AND DENIES SOB WITH SAO2 95%. PT REPORTING LOWER RIGHT ABDO PAIN AND SOME NAUSEA, PT REFUSING MEDS AND ENCOURAGED TO CALL WHEN READY. PT WITH IVC AT L AC INTACT AND OPERATIONAL. PT BED IN LOWEST LOCKED POSITION WITH HANDRAILSX2 AND CALL SNEED WITHIN REACH. PT BEEFED ON TODAY'S POC AND IS WITHOUT CONCERN OR COMPLAINT AT THIS TIME.
[2017-07-14 07:48] LABS: BASOPHILS % (AUTO) 0.3 % (0.0-2.0); EOSINOPHILS % (AUTO) 0.2 % (0.0-6.0); HEMATOCRIT 31 % (39-51); HEMOGLOBIN 10.6 g/dL (13.5-17.5); LYMPHOCYTES # (AUTO) 1.6 /CMM (0.8-4.8); LYMPHOCYTES % (AUTO) 13.5 % (20.0-44.0); MEAN CORPUSCULAR HEMOGLOBIN 29 PG (26.0-33.0); MEAN CORPUSCULAR HGB CONC 34 g/dl (31.0-36.0); MEAN CORPUSCULAR VOLUME 84 fL (80-96); MONOCYTES # (AUTO) 1.4 /CMM (0.1-1.30); MONOCYTES % (AUTO) 11.9 % (2.0-12.0); NEUTROPHILS # (AUTO) 8.6 /CMM (1.8-8.9); NEUTROPHILS % (AUTO) 74.1 % (43.0-81.0); PLATELET COUNT (AUTO) 509 /CMM (150-450); RDW COEFFICIENT OF VARIATION 16.1 (11.5-15.0); RED BLOOD CELL COUNT(AUTO) 3.67 MIL/uL (4.5-6.0); WHITE BLOOD COUNT (AUTO) 11.6 K/uL (4.3-11.0)
[2017-07-14 08:00] VITALS: BP 113/65
[2017-07-14 08:23] LABS: CALCIUM, SERUM 8.3 mg/dL (8.5-10.1); CREATININE 5.7 mg/dL (0.6-1.3); MAGNESIUM 2.1 mg/dL (1.8-2.4); PHOSPHORUS 6.1 mg/dL (2.5-4.9); POTASSIUM 4.4 mmol/L (3.5-5.1)
[2017-07-14] MEDS: FOLIC ACID 1 MG TABLET PO SCH (09:19)
[2017-07-14] MEDS: FERROUS SULFATE (325 MG) 325 MG/TAB TABLET PO SCH (09:19)
[2017-07-14] MEDS: HEPARIN SODIUM, PORCINE 5000 UNITS/1 ML VIAL SQ SCH (09:21)
[2017-07-14] MEDS: MORPHINE SULFATE INJ 4 MG/ML DISP.SYRIN IV PRN (09:39)
[2017-07-14] MEDS: ONDANSETRON HCL/PF 4 MG/2 ML VIAL IVP PRN (10:31)
[2017-07-14] MEDS ORDERED: METRONIDAZOLE 500 MG TABLET PO SCH (13:00)
[2017-07-14 16:00] VITALS: BP 118/75
--- NOTE | 2017-07-14 16:20 | NUR ---
MSRN CLOSING NOTES. PT PREPARED FOR D/C AMA. PT SEEN BY [employer] CC AND IS VERBALIZING UNDERSTANDING OF HEALTH STATUS AND RISKS, PT CHOOSING D/C BY AMA. PT VERBALIZING INTENT, PLAN AND RESOURCES TO LEAVE AMA AND PRESENT TO [facility]. PT WITH FAMILY SUPPORT FOR THE DECISION, BROTHER SUSANA AT BEDSIDE. PT TOLERATING ROOM AIR AND DENIES SOB, SAO2 WNL. PT REPORTING ABDOMINAL PAIN BUT DECLINES ANALGESIA. PT VITALS WNL. PT STATING ALL NEEDS CURRENTLY MED. PT IVC REMOVED AND NAD AT SITE. PT WITH ALL BELONGINGS AND DOCUMENT SIGNED. PT AND SUSANA DECLINED EXPLANATION OF [facility] D/C PACKET AND STATE THEY WILL GIVE D/C PACKET DIRECTLY TO ER NURSE AT NEXT FACILITY. PT SIGNED D/C PACKET AND AMA SHEET. PT ESCORTED BY RN TO CAR WITH WHEELCHAIR. BROTHER SUSANA TO DRIVE TO [facility]. PT IS WITHOUT CONCERN OR COMPLAINT AND GRATEFUL FOR THROUGHOUT ADMISSION.
--- NOTE | 2017-07-15 15:21 | NUR ---
JORGE notified pt's transportation security officer Lanre that pt. left the facility yesterday.
== END 2017-07-14 16:00 | disposition left against medical advice (07) | DRG 281 ==
LOC: ER 19:36 → TELE 07-11 02:22 → MED 07-11 12:17
PROVIDERS: ADMIT Nurse Practitioner Acute Care; ATTEND Nurse Practitioner Acute Care
DX: C78.7 Secondary malignant neoplasm of liver and intrahepatic bile duct (principal); N17.0 Acute kidney failure with tubular necrosis; R18.8 Other ascites; E87.1 Hypo-osmolality and hyponatremia; E83.39 Other disorders of phosphorus metabolism; I10 Essential (primary) hypertension; F17.200 Nicotine dependence, unspecified, uncomplicated; D50.9 Iron deficiency anemia, unspecified; E53.8 Deficiency of other specified B group vitamins; D63.8 Anemia in other chronic diseases classified elsewhere; F15.90 Other stimulant use, unspecified, uncomplicated; Z85.820 Personal history of malignant melanoma of skin; Z98.890 Other specified postprocedural states
CPT/HCPCS: 36415; 71045-TC; 76700-TC; 78582; 80048-TC; 80053-TC; 80076-TC; 81000-TC; 82550-TC; 82570-TC; 83605-TC; 83735-TC; 83880; 83970; 84100-TC; 84155; 84155-TC; 84165; 84300-TC; 84484-TC; 85025-TC; 85378-TC; 85730-TC; 87040-TC; 87081-TC; 93970-TC; A4216; A4606; A9540; A9567; J1644; J1650; J1940; J1956; J2270; J2405; J3490; J7030; J7040; P9047; Z7610